=== PATIENT | female | born 1955 | race Caucasian/White ===

== ENCOUNTER → 2017-11-28 | Outpatient (CLI) | payer OTHER ==
[~2017-11-28] MED LIST: CITALOPRAM HBR40 MG PO; NORFLEX100 MG PO; PERCOCET PO; PRINIVIL20 M1 PO; SINGULAIR 10 MG10 M1 PO; XANAX1 MG PO
== END ==
LOC: M.RAD 15:30
DX: Z12.31 Encounter for screening mammogram for malignant neoplasm of breast (principal); Z78.0 Asymptomatic menopausal state; M99.09 Segmental and somatic dysfunction of abdomen and other regions

== ENCOUNTER 2018-08-28 01:15 | Inpatient (IN) | payer OTHER ==
[~2018-08-28] VITALS: Ht 129.5 cm; Wt 53.1 kg
--- NOTE | ~2018-08-28 | OP ---
[address] [address] OPERATIVE REPORT Name: MELANI SHANNON Room: [address] IN .R.#: [id number] Admission: 08/28/18 Attend Phys: Ángel Marcelo MD Discharge: Date of : 59 Report #: [id number] THIS REPORT FOR: //name// CC: Jenny Marcelo MD DATE OF SERVICE: 08/29/2018 REFERRING PHYSICIANS: Ángel Marcelo MD and also nurse practitioner, JHOAN Carbajal PREOPERATIVE DIAGNOSIS: Symptomatic cholelithiasis. POSTOPERATIVE DIAGNOSIS: Symptomatic cholelithiasis. PROCEDURE: Laparoscopic cholecystectomy with intraoperative cholangiogram. SURGEON: Roc Manriquez DO HYDROELECTRIC OPERATOR: Arnie Steiner DO, PGY3 resident. SECOND WIRE INSERTER: TONEY Coyle student. ANESTHESIA: General endotracheal. ESTIMATED BLOOD LOSS: Less than 20 mL. COMPLICATIONS: None. DESCRIPTION OF PROCEDURE: After obtaining proper consents and discussing risks and complications with the patient, she was taken to the operating room and laid in the supine position and administered general endotracheal anesthetic. She was then prepped and draped in the usual sterile fashion. Timeout was performed. We confirmed the appropriate patient and procedure. Preoperative antibiotics were given. SCDs were in place. We then made a small infraumbilical skin incision with a #11 scalpel blade. This was carried down through the skin into the subcutaneous tissue using electrocautery for hemostasis. Once the fascia was encountered, it was incised along the midline, grasped and elevated with Elizabeth clamps and divided further. The peritoneum was then bluntly opened using hemostat. We then placed 2-0 Vicryl sutures in a [id number] fashion to secure the Elyssa trocar, which was then inserted and insufflation was begun. Once insufflation was complete, full visual inspection of the anterior abdominal organs was performed. This revealed a very dilated atonic-appearing gallbladder. There [place] [address] OPERATIVE REPORT Name: MIRTHAMELANIYulissa COATES Room: [address] IN .R.#: [id number] Admission: 08/28/18 Attend Phys: Ángel Marcelo MD Discharge: Date of : 59 Report #: [id number] identified. We then placed the patient in reverse Trendelenburg position and rotated her to the left. An 11-mm trocar was placed in the subxiphoid position. Two 5-mm trocars were placed in the right flank. The gallbladder was then grasped and elevated. We then used an immunofluorescent imaging to identify the common hepatic duct, common bile duct and cystic duct before any dissection was performed. We then dissected the hepatoduodenal ligament down from the gallbladder until we were able to identify the cystic duct and cystic artery. The cystic artery was quite close to the cystic duct and I elected to take the artery first, but prior to that, I did obtain a critical view of safety including the cystic duct, cystic artery, common hepatic duct and common bile duct. We also confirmed this using immunofluorescence imaging. I then divided the cystic artery between clips. We then performed cholangiography on the cystic duct. I placed a clip at the cystic duct gallbladder junction and then made a small александр in the cystic duct. A cholangiogram catheter was inserted. Cholangiography revealed good flow of contrast through a long cystic duct into the common bile duct into the duodenum. The common hepatic duct and hepatic radicles were also clear of any obstruction or stones. We then removed the cholangiogram catheter. Three clips were placed proximally on the cystic duct and the cystic duct was divided. The gallbladder was then removed from the liver bed using electrocautery. Once this was complete, it was placed into an Endopouch. I then checked the cystic duct and cystic artery stumps for any leak or bleeding as in the liver bed these all appeared dry. There was no leak identified. We then stopped the insufflation. All air was released. Trocars were removed. The gallbladder was removed through the umbilical incision. The umbilical fascia was then closed using the 2 previously placed 0 Vicryl sutures plus 2 additional 0 Vicryl sutures. Skin incisions were all injected with 0.5% Marcaine without epinephrine and closed using 4-0 Monocryl subcuticular stitches. Mastisol, Steri-Strips, sterile OpSite and pressure dressings were placed. The patient tolerated the procedure well. Sponge, needle and instrument counts were all correct at the end of the procedure. By: [id number] Nadira Manriquez DO /armando
[2018-08-28 01:26] VITALS: BP 99/75
[2018-08-28] MEDS ORDERED: ZANAFLEX4 MG PO (01:39)
[2018-08-28] MEDS ORDERED: FLOVENT HFA 4444 MCG INH (01:40)
[2018-08-28 01:47] LABS: URINE BILIRUBIN NEGATIVE (Negative); URINE BLOOD 1+ (Negative); URINE CLARITY CLEAR; URINE COLOR STRAW; URINE GLUCOSE-RANDOM NEGATIVE (Negative); URINE KETONES NEGATIVE (Negative); URINE LEUKOCYTES-REFLEX 1+ (Negative); URINE NITRITE-REFLEX NEGATIVE (Negative); URINE PROTEIN NEGATIVE (Negative); URINE SPECIFIC GRAVITY 1.015 (1.005-1.030); URINE UROBILINOGEN 0.2 E.U./dl (0.2-1.0)
[2018-08-28 01:58] LABS: ABSOLUTE BASOPHILS 0.1 thou/uL (0.0-0.2); ABSOLUTE EOSINOPHILS 0.1 thou/uL (0.0-0.7); ABSOLUTE LYMPHOCYTES 1.7 thou/uL (0.8-5.3); ABSOLUTE MONOCYTES 0.8 thou/uL (0.0-1.2); ABSOLUTE NEUTROPHILS 8.6 thou/uL (1.6-8.1); BASOPHILS 0.5 %; EOSINOPHILS 1.2 %; HEMATOCRIT 40.4 % (37.0-47.0); HEMOGLOBIN 13.7 gm/dL (12.0-15.0); LYMPHOCYTES 14.9 %; MCH 30.7 pg (26.0-34.0); MCHC 33.8 g/dL (28.0-37.0); MCV 90.9 fL (80.0-100.0); MPV 7.2 fl. (7.2-11.1); NUCLEATED RBCS 0 /100WBC; PLATELET COUNT* 312 thou/uL (150-400); POLYS 76.4 %; RBC 4.45 mil/uL (4.20-5.00); RDW-CV 13.8 % (10.5-14.5); WBC 11.2 thou/uL (4.0-11.0)
[2018-08-28 02:10] LABS: CREATININE 0.9 mg/dL (0.6-1.3); POTASSIUM 3.9 mmol/L (3.5-5.1)
[2018-08-28 02:14] LABS: TOTAL BILIRUBIN 0.2 mg/dL (<0.1-1.0); TOTAL PROTEIN 7.9 g/dL (6.4-8.2)
[2018-08-28 02:19] LABS: CASTS None Seen /LPF (None Seen); SQUAMOUS 4-10 Moderate /LPF (0-3)
[2018-08-28 02:20] LABS: BACTERIA-REFLEX 1-9 Few /HPF (None Seen); URINE RBC 0-2 Rare /HPF (0-2); URINE WBC-REFLEX 6-15 Few /HPF (0-5)
[2018-08-28 02:21] LABS: CRYSTALS None Seen /LPF (None Seen)
--- NOTE | 2018-08-28 04:28 | NUR ---
PT ADMITTED TO FLOOR PER CART ACCOMPANIED BY FRIEND AND ER STAFF WITH BELONGINGS. ORIENTED TO ROOM AND CALL LITE. AOX4, PLEASANT,TALKATIVE. HISTORY OBTAINED AND ASSESSMENT PERFORMED, SEE ADMIT NOTES. RAC IVF PLACED ON PUMP FOR INFUSION. PT DENIES PAIN OR NAUSEA AT THIS TIME. PT UNDERSTANDS AND IS AGREEABLE TO NPO STATUS, AWAITING DR ASSESSMENT AND PLAN OF CARE. CALL LITE IN EASY REACH, BED ALARM ON FOR SAFETY. WILL CONTINUE TO MONITOR AND PROVIDE CARES NEEDED.
[2018-08-28 04:30] VITALS: BP 122/48
[2018-08-28 04:37] VITALS: BP 130/58
[2018-08-28] MEDS ORDERED: CETIRIZINE HCL5 MG PO (05:39)
--- NOTE | 2018-08-28 06:39 | NUR ---
PT RESTING WITHOUT COMPLAINTS SINCE ADMISSION. RAC IVF INFUSING PER PUMP. NPO. ABLE TO USE CALL LITE AND MAKE NEEDS KNOWN. GI AND SURGERY TO CONSULT.
[2018-08-28 08:40] VITALS: BP 119/62
--- NOTE | 2018-08-28 09:17 | NUR ---
PT OFF UNIT FOR ULTRASOUND AND CT SCAN. WILL CONTINUE TO MONITOR.
--- NOTE | 2018-08-28 11:44 | NUR ---
MET WITH PT TO DISCUSS HOME SITUATION/DC PLANNING. PT LIVE WITH SPOUSE AND IS INDEPENDENT AND ACTIVE. USES NO EQUIPMENT. PT HAD HH SEVERAL YEARS AGO AFTER HIP SURGERY. SHE DENIES ANY DC NEEDS AT THIS TIME. WILL FOLLOW
[2018-08-28 17:06] VITALS: BP 134/54
--- NOTE | 2018-08-28 17:09 | NUR ---
PT REMAINED ALERT AND ORIENTED. PT C/O NAUSEA ONCE THIS SHIFT, MEDICATION GIVEN ORDERED. PT TOLERATING CLEAR LIQUID DIET. NPO AFTER MIDNIGHT. FALL RISK PRECAUTIONS IN PLACE. HOURLY ROUNDING COMPLETED. WILL CONTINUE TO MONITOR.
[2018-08-28 20:15] VITALS: BP 145/69
--- NOTE | 2018-08-29 05:15 | NUR ---
PATIENT HAD SOME NAUSEA AROUND 0300 BUT EVENTUALLY IT LESSENED. SHE REQUESTED A DOSE OF FENTANYL FOR PAIN BEFORE BEDTIME SO I ADMINISTERED 50 MCG. SHE WAS ABLE TO SLEEP FOR ABOUT 5 HOURS. SHE STATED SHE HAD NOT SLEPT SINCE SHE WOKE UP ON Monday. COMPLETELY NPO AT MIDNIGHT IN PREPARATION FOR DR TO VISIT IN MORNING. SHE IS ANXIOUS TO GO HOME.
[2018-08-29 05:20] LABS: HEMATOCRIT 35.9 % (37.0-47.0); MCH 30.9 pg (26.0-34.0); MCHC 33.6 g/dL (28.0-37.0); MCV 92.2 fL (80.0-100.0); MPV 7.6 fl. (7.2-11.1); RBC 3.89 mil/uL (4.20-5.00); WBC 5.9 thou/uL (4.0-11.0)
[2018-08-29 05:54] LABS: ALBUMIN 3.2 g/dL (3.4-5.0); CALCIUM 9.2 mg/dL (8.5-10.1); CREATININE 0.7 mg/dL (0.6-1.3); MAGNESIUM 1.9 mg/dL (1.8-2.4); PHOSPHORUS* 2.9 mg/dL (2.5-4.9); TOTAL BILIRUBIN 0.3 mg/dL (<0.1-1.0); TOTAL PROTEIN 6.9 g/dL (6.4-8.2)
[2018-08-29 08:00] VITALS: BP 141/68
[2018-08-29 13:05] VITALS: BP 141/68
--- NOTE | 2018-08-29 17:21 | EKG ---
[place] [address] ELECTROCARDIOGRAM REPORT Name: MELANI SHANNON Room: [address] ADM IN M.R.#: [id number] Admission: 08/28/18 Attend Phys: Ángel Marcelo MD Discharge: Date of : 59 Report #: [id number] THIS REPORT FOR: //name// [facility] Test Date: 2018-08-29 Test Time: 11:12:41 Pat Name: MELANI SHANNON Department: Room: [address] Gender: F Mail Room: : 1955 Requested By: Roc Manriquez Order Number: [id number] Gavin MD: Declan Crane Measurements Intervals [place] Rate: 72 P: 41 RI: 147 QRS: -47 QRSD: 83 T: 17 QT: 388 QTc: 425 Interpretive Statements Sinus rhythm Probable left atrial enlargement Left anterior fascicular block Low voltage, extremity leads Abnormal R-wave progression, late transition No previous ECG available for comparison Electronically Signed On 08-29-2018 17:20:51 CDT by Declan Crane [email or web address] <ELECTRONICALLY SIGNED> By: Declan Crane MD, [facility] 08/29/18 1720 1112 1112 Declan Crane MD, [facility] /EPI
[2018-08-29 19:04] VITALS: BP 153/55
[2018-08-29 19:50] VITALS: BP 130/56
[2018-08-30 00:15] VITALS: BP 112/52
[2018-08-30 04:00] VITALS: BP 114/57
--- NOTE | 2018-08-30 05:49 | NUR ---
PT ALERT AND ORIENTED. VITALS STABLE WITH 2L O2 BY NC. MEDS GIVEN ORDERED. PAIN CONROLLED WITH PO MED. TOLERATED DIET WITHOUT NAUSEA OR VOMITING. DRESSING ON ABD CLEAN AND DRY. IV FLUID DISCONTINUED DUE TO LEAKS, BUT PT REFUSED NEW IV OR IV FLUID. HOURLY ROUNDING COMPLETED. WILL CONTINUE TO MONITOR.
[2018-08-30 08:00] VITALS: BP 128/52
[2018-08-30] MEDS ORDERED: PERCOCET PO (08:31)
[2018-08-30 09:21] VITALS: BP 128/52
--- NOTE | 2018-08-30 14:30 | NUR ---
DISCHARGE NOTE - REVIEWED INSTRUCTIONS WITH PT. NO QUESTIONS. IV REMOVED. ALL BELONGINGS SENT WITH PT.
--- NOTE | 2018-08-30 20:16 | CON ---
[address] [address] CONSULTATION Name: MELANI SHANNON Room: [address] IN M.R.#: [id number] Admission: 08/28/18 Attend Phys: Ángel Marcelo MD Discharge: 08/30/18 Date of : 59 Report #: [id number] THIS REPORT FOR: //name// CC: Jenny Sanchez [facility] Ángel Marcelo DICTATED BY: Baylee Chang [facility] DATE OF SERVICE: 08/28/2018 Please note at the time of this dictation, the patient was seen and physically examined by myself. REASON FOR CONSULTATION: Abdominal pain, possibly cholecystitis. HISTORY OF PRESENT ILLNESS: This is a 62-year-old female presented to the Emergency Room early this a.m. with chief complaint of abdominal pain that had been going on since earlier the previous day. She had been having some issues with notable acid reflux, which she typically never has, some bloating and some nausea. She denied any emesis. This is the first time this has happened to her as well. The patient did undergo a colonoscopy with Dr. Triana back last fall and was noted to have some colon polyps. ALLERGIES: ASPIRIN, SYMBICORT, SINGULAIR, CODEINE, DIAZEPAM, ERYTHROMYCIN, MORPHINE, PENICILLIN, LYRICA, PROCHLORPERAZINE. MEDICATIONS: From home include lisinopril, citalopram, Xanax, Zanaflex, Flovent, Zyrtec and oxycodone. PAST MEDICAL HISTORY: Significant for hypertension, fibromyalgia, PTSD, anxiety, chronic pain, arthritis, and asthma. PAST SURGICAL HISTORY: Hysterectomy, bilateral hip replacement, back surgery, and tonsillectomy. FAMILY HISTORY: Sister had some colon polyps that had to be extensively resected otherwise negative. SOCIAL HISTORY: She is . Alcohol, she drinks about 2 beers daily and she does utilize marijuana. REVIEW OF SYSTEMS: Twelve-point review of systems is essentially negative except what is mentioned in the HPI. PHYSICAL EXAMINATION: [place] [address] CONSULTATION Name: MELANI SHANNON Room: [address]#: [id number] Admission: 08/28/18 Attend Phys: Ángel Marcelo MD Discharge: 08/30/18 Date of : 59 Report #: [id number] VITAL SIGNS: Temperature 36.8, pulse 59, respirations 14, blood pressure 109/62. HEART: Regular rate and rhythm. LUNGS: Clear. ABDOMEN: Soft, positive bowel sounds in all 4 quadrants with some slight epigastric pain and tenderness noted. LABORATORY DATA: Hemoglobin is 13.7, white count is 11.2, and platelets 312. Lipase is 306. GFR is 64, total bilirubin 0.2, alkaline phosphatase 134, ALT 32, AST 20. CT of the abdomen and pelvis showed fatty liver. Gallbladder distended with questionable hyperdensity in the cystic duct could be an aneurysm or possibly an impacted calculi. Ultrasound identifies gallstones at the neck of the gallbladder or within the cystic duct with some mild gallbladder thickening. Common bile duct is 6 mm. IMPRESSION: 1. Abdominal pain, epigastric, improved. 2. Abnormal CT and ultrasound findings, questionable cystic duct abnormality. 3. Leukocytosis. 4. Some nausea, improved. PLAN: 1. The patient refuses MRCP due to her anxiety. 2. Based on her labs and CT findings, recommend laparoscopic cholecystectomy with IOC at this time. 3. Further recommendations to be made once Dr. Vlad Claudio sees the patient later today. Thank you for allowing us to participate in this patient's care. Please do not hesitate to call with any questions in regard to this client. <ELECTRONICALLY SIGNED> By: Vlad Claudio MD 08/30/182015 1259 2109Vlad Claudio MD /nt
--- NOTE | 2018-08-31 18:06 | PATH ---
[facility] [address] [place] [address] PATHOLOGY RPT PROCEDURE Name: ESTEFANY SHANNON Room: [address] IN ..#: [id number] Admission: 08/28/18 Date of : 59 Discharge: 08/30/18 Report #: [id number] Path Case #: [id number] [facility] Accession Number: [id number] . 01 Material submitted: . gallbladder - GALLBLADDER . 01 Clinical history: . Acute cholecystitis with cholelithiasis. . 02 Diagnosis: Gallbladder: - Chronic cholecystitis and cholelithiasis. (ARIAS:alessandro; 08/31/2018) MBR/08/31/2018 . 02 Electronically signed: . Austin Castañeda MD, Pathologist NPI- [id number] . 01 Gross description: . Received in formalin labeled "Koby, Estefany, gallbladder" is an intact cholecystectomy specimen measuring 6.2 x 2.8 x 2.5 cm. The serosa is albarado-green and smooth and the specimen is opened to reveal dark green velvety mucosa without polyps or masses. The average wall thickness is 0.1 cm. Two calculi are present, which are albarado-green, bosselated, measuring 1.1 and 1.4 cm in greatest dimension. Slab Tripper sections of the fundus and body and the cystic duct margin are submitted in A1. ([facility]; 08/30/2018) SYC/SYC . 02 Pathologist provided ICD-10: K80.10 . 02 CPT . 076425 Specimen Comment: A courtesy copy of this report has been sent to Specimen Comment: [phone], , . Specimen Comment: Report sent to ,DR NICHOLAS / DR CH Performed at: [address], [place], [place] [id number] MD Jerry Trevino MD Phone: [phone] Performed at: 02 [facility] [address], [place], [place] [id number] MD Austin Castañeda MD Phone: [phone]
== END 2018-08-30 14:40 | disposition home or self-care (01) | DRG 418 ==
LOC: M.ERS 01:15 → M.TBA-ER 03:53 → M.ORTHSURG 03:53
PROVIDERS: Emergency Medicine; ADMIT Family Medicine
PROC: 0FT44ZZ Resection of Gallbladder, Percutaneous Endoscopic Approach (ICD-10-PCS; principal; 2018-08-29)
PROC: BF121ZZ Fluoroscopy of Gallbladder using Low Osmolar Contrast (ICD-10-PCS; principal; 2018-08-29)
DX: K80.00 Calculus of gallbladder with acute cholecystitis without obstruction (principal); E44.1 Mild protein-calorie malnutrition; F12.90 Cannabis use, unspecified, uncomplicated; F41.9 Anxiety disorder, unspecified; M19.90 Unspecified osteoarthritis, unspecified site; J45.909 Unspecified asthma, uncomplicated; Z96.643 Presence of artificial hip joint, bilateral; D72.829 Elevated white blood cell count, unspecified; M79.7 Fibromyalgia; E34.3 Short stature due to endocrine disorder; M54.9 Dorsalgia, unspecified; F32.9 Major depressive disorder, single episode, unspecified; I10 Essential (primary) hypertension; G89.29 Other chronic pain; Z88.6 Allergy status to analgesic agent; Z88.1 Allergy status to other antibiotic agents; Z88.0 Allergy status to penicillin; Z88.8 Allergy status to other drugs, medicaments and biological substances; Z79.899 Other long term (current) drug therapy; Z87.891 Personal history of nicotine dependence; Z90.710 Acquired absence of both cervix and uterus; Z68.31 Body mass index [BMI] 31.0-31.9, adult